=== PATIENT | female | born 1970 | race Caucasian/White ===

== ENCOUNTER 2017-05-10 00:28 | Emergency (ER) | payer MEDICAID ==
--- NOTE | 2017-05-13 11:58 | ER ---
ADMIT: 05/10/2017 RM/LOC: ER [facility] MR#: [id number] [address] [id number] [place] [address] [place] [id number] Emergency Room Report SEX: F AGE: 47 : 1970 DATE: 05/10/2017 HISTORY OF PRESENT ILLNESS: The patient is a 47-year-old female, who came to the ER with chief complaint of left shoulder pain and left neck pain. The patient states for some years, she had left shoulder pain status post multiple ground level falls at work, and states that on and off the pain increases and for the last 4 days, the pain increased and the patient could not recall any new traumas. The pain is mostly on the left shoulder and lateral upper side extending from the left paraspinal to the left deltoid area, the patient states that the range of motion of the left shoulder is limited because of the pain. The patient denies any numbness or tingling or new weaknesses. The patient states the flexion and abduction of the left shoulder even at 30 degrees could increase the pain to the [id number] pain. Pain is sharp. The patient denies any recent illness, fever, or any shortness of breath. PHYSICAL EXAMINATION: GENERAL: The patient is in moderate distress, trying to keep the left shoulder immobilized from any movement. HEAD AND NECK: Positive for left paraspinal moderate tenderness, which also extended to the left trapezius and left lateral deltoid and any abduction or flexion of the left shoulder could increase the pain exponentially. The patient had normal peripheral pulses. Motor and sensory is grossly normal. CHEST: Clear bilaterally. HEART: Normal heart sounds. ABDOMEN: Soft. PELVIS: Stable. The rest of the physical exam is negative and noncontributory. Actual pressure on the head did not change the pain, we put the [id number] actual pressure. Cervical spine x-ray did not show any acute changes or fractures. Left shoulder x-ray also did not show any dislocation or fracture. The pain was controlled with Percocet, the patient was discharged home with a prescription for Percocet and advised to take Motrin too as needed and follow up with the primary doctor, the patient was put on left upper extremity sling and was advised to use range of motion exercises multiple times a day to avoid and stop frozen shoulder injury. The patient acknowledged and understood and was discharged to home. Jere Armando MD/ dione JOB #: [id number] CC: Jere Armando MD, Attending Physician Song Alexander MD, Family Physician
== END 2017-05-10 01:30 | disposition home or self-care (01) ==
LOC: ER 00:28
DX: M25.512 Pain in left shoulder (principal); G89.29 Other chronic pain; Z88.8 Allergy status to other drugs, medicaments and biological substances; Z79.899 Other long term (current) drug therapy